=== PATIENT | male | born 1985 | race Caucasian/White ===

== ENCOUNTER → 2019-05-03 | Outpatient (REF) | payer BC ==
[~2019-05-03] MED LIST: PANT40TA65 PO; SUCR1TAB85 PO
[2019-05-03 18:21] LABS: PLATELET COUNT, AUTOMATED 300 K/uL (150-450)
== END ==
PROVIDERS: ATTEND Nurse Practitioner Family
DX: R10.9 Unspecified abdominal pain (principal)
CPT/HCPCS: 82040; 82150; 82247; 82310; 82374; 82435; 82565; 82947; 83690; 84075; 84132; 84155; 84295; 84450; 84460; 84520; 85025

== ENCOUNTER 2019-05-04 18:54 | Emergency (ER) | payer BC ==
--- NOTE | 2019-05-04 19:16 | ER Report ---
History and Physical Time Seen By MD: 19:14 Hx. of Stated Complaint: PT HAS MEDIAL UPPER QUADRANT PAIN SINCE THURSDAY. HPI/ROS CHIEF COMPLAINT: abdominal pain HISTORY OF PRESENT ILLNESS: This is a 33 year old male. He has been having diffuse abdominal pain for the last 4 days. Had been seen at urgent care, and negative labs, thought might be gastritis. He is still having the pain, diffuse, but more in the epigastric area. Worsened today, perhaps a little worse with eating some gumbo, but also with some toast. Mild nausea. No diarrhea, blood in stool or melena. No fevers or chills. No trouble urinating. Not short of breath, or cough. Allergies: Coded Allergies: Penicillins (Verified Allergy, Intermediate, HIVES, 05/04/19) Home Meds Active Scripts Sucralfate (CARAFATE) 1 Gm Tablet, 1 GM PO QID, #120 TAB 0 Refills Prov:AARON WAY MD 05/04/19 Pantoprazole Sodium (PANTOPRAZOLE SODIUM) 40 Mg Tablet.dr, 40 MG PO QDAY, #30 TAB.SR 0 Refills Prov:AARON WAY MD 05/04/19 Reviewed Nurses Notes: Yes Constitutional Vital Sign - Last 24 Hours 05/04/19 05/04/19 05/04/19 05/04/19 19:00 19:02 19:09 19:24 Temp 98.0 Pulse 50 60 67 Resp 14 B/P (MAP) 136/83 (100) 136/83 Pulse Ox 97 92 94 O2 Delivery Room Air 05/04/19 05/04/19 05/04/19 05/04/19 19:30 19:38 19:39 19:54 Pulse 55 51 B/P (MAP) 132/82 (99) 125/82 (96) Pulse Ox 97 95 05/04/19 05/04/19 05/04/19 05/04/19 20:00 20:09 20:30 20:39 Pulse 54 61 B/P (MAP) 119/78 (92) 119/70 (86) Pulse Ox 97 89 05/04/19 05/04/19 05/04/19 05/04/19 20:50 20:50 21:00 21:05 Pulse 55 50 B/P (MAP) 119/62 (81) Pulse Ox 89 89 90 05/04/19 05/04/19 05/04/19 05/04/19 21:20 21:30 21:35 21:50 Pulse 47 55 54 B/P (MAP) 126/68 (87) Pulse Ox 92 90 89 Intake and Output 05/04/19 05/04/19 05/05/19 15:01 23:01 07:01 Intake Total 1000 ml Balance 1000 ml Physical Exam General Appearance: The patient is alert. No acute distress. Eyes: Pupils are equal, round. No pallor, injection or icterus. ENT: Mucous membranes are moist. Normal oral mucosa. Normal posterior oropharynx. Neck: Supple and non tender. Respiratory: Breathing easily and unlabored. Lungs are clear to auscultation. Cardiovascular: Regular rate and rhythm. No murmurs, gallops or rubs. Normal capillary refill. Gastrointestinal: Abdomen is soft, diffuse discomfort with palpation, seems worse in epigastric area. Nondistended. No rebound or guarding. Normal active bowel sounds. No costovertebral angle tenderness with percussion. Neurological: Alert and oriented x3. Skin: Warm and dry. Musculoskeletal: No tenderness in palpation of the cervical, thoracic and lumbar spine. DIFFERENTIAL DIAGNOSIS: After history and physical exam, differential diagnosis was considered for epigastric pain including but not limited to biliary colic, cholecystitis, peptic ulcer disease, pancreatitis, and gastroenteritis. Medical Decision Making Data Points Result Diagram: 05/04/19194005/04/191940 Laboratory Hematology Test 05/04/19 00:00 05/04/19 19:41 Urine Color Yellow Urine Clarity Clear Urine pH 6.0 pH (4.8-9.5) Urine Specific [place] 1.015 Urine Protein Negative mg/dL (NEGATIVE) Urine Glucose (UA) Negative mg/dL (NEGATIVE) Urine Ketones Negative mg/dL (NEGATIVE) Urine Blood Negative (NEGATIVE) Urine Nitrite Negative (NEGATIVE) Urine Bilirubin Negative (NEGATIVE) Urine Urobilinogen Negative mg/dL (0.2-1.9) Urine Leukocyte Esterase Negative (NEGATIVE) Urine RBC <1 /HPF (0-2/HPF) Urine WBC <1 /HPF (0-5/HPF) Urine Squamous Epithelial Cells None /LPF (</=FEW) Urine Bacteria Negative /HPF (NONE-FEW) Urine Mucus Few /HPF (NONE-FEW) Red Blood Count 5.89 M/uL (4.00-5.60) Mean Corpuscular Volume 88.3 fL (80.0-96.0) Mean Corpuscular Hemoglobin 30.7 pg (26.0-33.0) Mean Corpuscular Hemoglobin Concent 34.8 g/dL (32.0-36.0) Red Cell Distribution Width 13.4 % (11.5-14.5) Mean Platelet Volume 7.2 fL (7.2-11.1) Neutrophils (%) (Auto) 77.2 % (39.4-72.5) Lymphocytes (%) (Auto) 17.4 % (17.6-49.6) Monocytes (%) (Auto) 4.9 % (4.1-12.4) Eosinophils (%) (Auto) 0.2 % (0.4-6.7) Basophils (%) (Auto) 0.3 % (0.3-1.4) Nucleated RBC Relative Count (auto) 0.1 /100WBC Neutrophils # (Auto) 9.8 K/uL (2.0-7.4) Lymphocytes # (Auto) 2.2 K/uL (1.3-3.6) Monocytes # (Auto) 0.6 K/uL (0.3-1.0) Eosinophils # (Auto) 0.0 K/uL (0.0-0.5) Basophils # (Auto) 0.0 K/uL (0.0-0.1) Nucleated RBC Absolute Count (auto) 0.01 K/uL Sodium Level 141 mmol/L (137-145) Potassium Level 4.1 mmol/L (3.5-5.0) Chloride Level 101 mmol/L (98-107) Carbon Dioxide Level 29 mmol/L (22-30) Blood Urea Nitrogen 17 mg/dl (9-21) Creatinine 0.90 mg/dl (0.66-1.25) Glomerular Filtration Rate Calc > 60.0 Random Glucose 104 mg/dl (75-110) Calcium Level 9.7 mg/dl (8.4-10.2) Total Bilirubin 0.5 mg/dl (0.2-1.3) Aspartate Amino Transf (AST/SGOT) 27 U/L (0-35) Alanine Aminotransferase (ALT/SGPT) 53 U/L (0-56) Alkaline Phosphatase 94 U/L (0-126) Total Protein 8.0 g/dl (6.3-8.2) Albumin 4.6 g/dl (3.5-5.0) Amylase Level 60 U/L (0-110) Lipase 41 U/L (23-300) Helicobacter pylori IgG Antibody Negative (NEGATIVE) Chemistry Test 05/04/19 00:00 05/04/19 19:41 Urine Color Yellow Urine Clarity Clear Urine pH 6.0 pH (4.8-9.5) Urine Specific [place] 1.015 Urine Protein Negative mg/dL (NEGATIVE) Urine Glucose (UA) Negative mg/dL (NEGATIVE) Urine Ketones Negative mg/dL (NEGATIVE) Urine Blood Negative (NEGATIVE) Urine Nitrite Negative (NEGATIVE) Urine Bilirubin Negative (NEGATIVE) Urine Urobilinogen Negative mg/dL (0.2-1.9) Urine Leukocyte Esterase Negative (NEGATIVE) Urine RBC <1 /HPF (0-2/HPF) Urine WBC <1 /HPF (0-5/HPF) Urine Squamous Epithelial Cells None /LPF (</=FEW) Urine Bacteria Negative /HPF (NONE-FEW) Urine Mucus Few /HPF (NONE-FEW) White Blood Count 12.7 k/uL (4.5-11.0) Red Blood Count 5.89 M/uL (4.00-5.60) Hemoglobin 18.1 g/dL (14.0-18.0) Hematocrit 52.0 % (42.0-52.0) Mean Corpuscular Volume 88.3 fL (80.0-96.0) Mean Corpuscular Hemoglobin 30.7 pg (26.0-33.0) Mean Corpuscular Hemoglobin Concent 34.8 g/dL (32.0-36.0) Red Cell Distribution Width 13.4 % (11.5-14.5) Platelet Count 271 K/uL (150-450) Mean Platelet Volume 7.2 fL (7.2-11.1) Neutrophils (%) (Auto) 77.2 % (39.4-72.5) Lymphocytes (%) (Auto) 17.4 % (17.6-49.6) Monocytes (%) (Auto) 4.9 % (4.1-12.4) Eosinophils (%) (Auto) 0.2 % (0.4-6.7) Basophils (%) (Auto) 0.3 % (0.3-1.4) Nucleated RBC Relative Count (auto) 0.1 /100WBC Neutrophils # (Auto) 9.8 K/uL (2.0-7.4) Lymphocytes # (Auto) 2.2 K/uL (1.3-3.6) Monocytes # (Auto) 0.6 K/uL (0.3-1.0) Eosinophils # (Auto) 0.0 K/uL (0.0-0.5) Basophils # (Auto) 0.0 K/uL (0.0-0.1) Nucleated RBC Absolute Count (auto) 0.01 K/uL Glomerular Filtration Rate Calc > 60.0 Calcium Level 9.7 mg/dl (8.4-10.2) Total Bilirubin 0.5 mg/dl (0.2-1.3) Aspartate Amino Transf (AST/SGOT) 27 U/L (0-35) Alanine Aminotransferase (ALT/SGPT) 53 U/L (0-56) Alkaline Phosphatase 94 U/L (0-126) Total Protein 8.0 g/dl (6.3-8.2) Albumin 4.6 g/dl (3.5-5.0) Amylase Level 60 U/L (0-110) Lipase 41 U/L (23-300) Helicobacter pylori IgG Antibody Negative (NEGATIVE) Urinalysis Test 05/04/19 00:00 Urine Color Yellow Urine Clarity Clear Urine pH 6.0 pH (4.8-9.5) Urine Specific [place] 1.015 Urine Protein Negative mg/dL (NEGATIVE) Urine Glucose (UA) Negative mg/dL (NEGATIVE) Urine Ketones Negative mg/dL (NEGATIVE) Urine Blood Negative (NEGATIVE) Urine Nitrite Negative (NEGATIVE) Urine Bilirubin Negative (NEGATIVE) Urine Urobilinogen Negative mg/dL (0.2-1.9) Urine Leukocyte Esterase Negative (NEGATIVE) Urine RBC <1 /HPF (0-2/HPF) Urine WBC <1 /HPF (0-5/HPF) Urine Squamous Epithelial Cells None /LPF (</=FEW) Urine Bacteria Negative /HPF (NONE-FEW) Urine Mucus Few /HPF (NONE-FEW) EKG/Imaging Imaging CT abdomen and pelvis with IV contrast Indication: Abdominal pain. Comparison: None available. . Technique: Axial CT images were obtained through the abdomen and pelvis during injection of nonionic iodinated intravenous contrast. Reformatted coronal and sagittal images were also obtained. One of the following dose optimization techniques was utilized in the performance of this exam: Automated exposure control; adjustment of the mA and/or kV according to the patient's size; or use of an iterative reconstruction technique. Specific details can be referenced in the facility's radiology CT exam operational policy. Contrast: 75 ml of Isovue-370 IV contrast. Findings: Lower lung clay: Limited views lower lung field are unremarkable. Liver: There is a 1 cm hypodensity along the medial aspect of the falciform ligament. No other focal abnormality. Biliary: Gallbladder appears unremarkable as well as the intra and extra hepatic biliary system. Pancreas: Normal appearance. Spleen: Normal appearance. Adrenal glands: Unremarkable. Kidneys / retroperitoneum: No evidence of nephrolithiasis or hydronephrosis. No focal abnormality. Bowel / peritoneum / mesenteries: Colon shows no focal normality. The appendix is not definitely visualized. No secondary signs of appendicitis. Small bowel shows no focal normality or obstruction. The stomach is decompressed with mild diffuse wall thickening. No focal abnormality. No free air, free fluid, fluid collections or areas of inflammation. Tiny umbilical hernia containing fat. Lymph node assessment: No pathologic adenopathy identified. Pelvic structures: Urinary bladder is partially decompressed and grossly normal. The remaining pelvic structures visualized within normal limits. Vessels: No significant atherosclerotic calcifications seen throughout a nonaneurysmal abdominal aorta and branches. Musculoskeletal / Body wall: No acute or aggressive osseous abnormality. IMPRESSION: 1. No acute intra-abdominal abnormality. 2.t The stomach is decompressed with the wall is mildly diffusely thickened. There is no focal normality. This is most likely due to the decompressed appearance. If there is concern a follow-up endoscopy can evaluate for abnormality. 3. 1 cm hypodensity along the falciform ligament of the liver. This may represent focal fat. However is nonspecific. If the patient has a known neoplasm than a follow-up MRI of the liver without with contrast. Otherwise. Follow-up CT scan of the liver without and with contrast in six months for reevaluation. Report Dictated By: Royer Chapin at 05/04/2019 8:40 PM ED Course/Re-evaluation Clinical Indication for ER IV: Hydration, IV Access ED Course Repeated labs, slight elevation of white blood cell count but metabolic panel and pancreatic enzymes entirely normal. CT scan shows a little bit of thickening in the wall of the stomach which could be based on contracture of the stomach but could also represent gastritis. H. pylori is negative. No other problems seen on CT scan. Recommended treatment for possible gastritis and follow-up with either gastroenterology or general surgery. Decision to Disposition Date: May 04, 2019 Decision to Disposition Time: 21:42 Depart Departure Latest Vital Signs Vital Signs Date Time Temp Pulse Resp B/P (MAP) Pulse Ox O2 Delivery O2 Flow Rate FiO2 05/04/19 21:50 54 89 05/04/19 21:30 126/68 (87) 05/04/19 19:02 98.0 14 Room Air Impression: Primary Impression: Gastritis Condition: Improved Disposition: HOME OR SELF-CARE New Scripts Sucralfate (CARAFATE) 1 Gm Tablet 1 GM PO QID, #120 TAB 0 Refills Prov: AARON WAY MD 05/04/19 Pantoprazole Sodium (PANTOPRAZOLE SODIUM) 40 Mg Tablet. 40 MG PO QDAY, #30 TAB.SR 0 Refills Prov: AARON WAY MD 05/04/19 Patient Instructions: Diet for Stomach Ulcers and Gastritis (ED), Gastritis (ED) Additional Instructions: Your exam and CT scan did not show a definite cause of abdominal pain. We think that this is probably gastritis. Diet should be bland avoiding things that would irritate the stomach. Follow-up recommended with Gastroenterology or with a general surgeon who does scopes. Dr. Weston and Dr. Baumann are general surgeons in [facility] that do these. Dr. Goff comes from [place] a few times a month and is a gastroenterologis. Protonix 40mg twice a day. Carafate 1g tablet 4 times a day. Problem Qualifiers Primary Impression: Gastritis Gastritis type: unspecified gastritis Chronicity: acute Gastritis bleeding: without bleeding Qualified Codes: K29.00 - Acute gastritis without bleeding AARON WAY MD May 04, 2019 19:15
[2019-05-04] MEDS ORDERED: MORPHINE 4 MG/ML SDV IVP ONE (19:30)
[2019-05-04] MEDS ORDERED: ONDANSETRON 4 MG/2 ML VIAL IVP ONE (19:30)
[2019-05-04] MEDS ORDERED: PANTOPRAZOLE SOD 40 MG IV VIAL IVP ONE (19:30)
[2019-05-04] MEDS ORDERED: NS(*) 0.9% 1000 ML BAG 1,000 ML IV ONE (19:30)
[2019-05-04 19:48] LABS: PLATELET COUNT, AUTOMATED 271 K/uL (150-450)
[2019-05-04] MEDS ORDERED: IOPAMIDOL 76% 100 ML INFUS BTL 100 ML ONE (20:01)
--- NOTE | 2019-05-04 20:55 | RADIOLOGY IMAGING REPORT ---
FACILITY: [facility] PATIENT NAME: Moisés Ugalde : 1985 MR: [id number] V: [id number] EXAM DATE: ORDERING PHYSICIAN: AARON WAY TECHNOLOGIST: Location: [facility] Patient: Moisés Ugalde : 1985 Visit/Account:[id number] Date of Sevice: 05/04/2019 CT abdomen and pelvis with IV contrast Indication: Abdominal pain. Comparison: None available. . Technique: Axial CT images were obtained through the abdomen and pelvis during injection of nonioni c iodinated intravenous contrast. Reformatted coronal and sagittal images were also obtained. One of the following dose optimization techniques was utilized in the performance of this exam: Autom ated exposure control; adjustment of the mA and/or kV according to the patient's size; or use of an i terative reconstruction technique. Specific details can be referenced in the facility's radiology C T exam operational policy. Contrast: 75 ml of Isovue-370 IV contrast. Findings: Lower lung clay: Limited views lower lung field are unremarkable. Liver: There is a 1 cm hypodensity along the medial aspect of the falciform ligament. No other focal abnormality. Biliary: Gallbladder appears unremarkable as well as the intra and extra hepatic biliary system. Pancreas: Normal appearance. Spleen: Normal appearance. Adrenal glands: Unremarkable. Kidneys / retroperitoneum: No evidence of nephrolithiasis or hydronephrosis. No focal abnormality. Bowel / peritoneum / mesenteries: Colon shows no focal normality. The appendix is not definitely vis ualized. No secondary signs of appendicitis. Small bowel shows no focal normality or obstruction. The stomach is decompressed with mild diffuse wall thickening. No focal abnormality. No free air, free fluid, fluid collections or areas of inflammation. Tiny umbilical hernia containin g fat. Lymph node assessment: No pathologic adenopathy identified. Pelvic structures: Urinary bladder is partially decompressed and grossly normal. The remaining pe lvic structures visualized within normal limits. Vessels: No significant atherosclerotic calcifications seen throughout a nonaneurysmal abdominal aort a and branches. Musculoskeletal / Body wall: No acute or aggressive osseous abnormality. IMPRESSION: 1. No acute intra-abdominal abnormality. 2.t The stomach is decompressed with the wall is mildly diffusely thickened. There is no focal rosemarie lity. This is most likely due to the decompressed appearance. If there is concern a follow-up endos copy can evaluate for abnormality. 3. 1 cm hypodensity along the falciform ligament of the liver. This may represent focal fat. Howev er is nonspecific. If the patient has a known neoplasm than a follow-up MRI of the liver without wit h contrast. Otherwise. Follow-up CT scan of the liver without and with contrast in six months for r eevaluation. Report Dictated By: Royer Chapin at 05/04/2019 8:40 PM Report E-Signed By: Royer Chapin at 05/04/2019 8:51 PM [id number]
[2019-05-04 21:30] VITALS: BP 126/68
[2019-05-04] MEDS ORDERED: PANT40TA65 PO (21:45)
[2019-05-04] MEDS ORDERED: SUCR1TAB85 PO (21:45)
== END 2019-05-04 22:02 | disposition home or self-care (01) ==
LOC: ER 19:35
DX: K29.00 Acute gastritis without bleeding (principal)
CPT/HCPCS: 74177; 81001; 82150; 83690; 85025; 86677; 96361; 96374; 96375; 99284; C9113; J2270; J2405; J7030; Q9967; 82040; 82247; 82310; 82374; 82435; 82565; 82947; 84075; 84132; 84155; 84295; 84450; 84460; 84520